=== PATIENT | male | born 1990 | race Caucasian/White ===

== ENCOUNTER → 2017-10-13 | Outpatient (CLI) | payer OTHER ==
--- NOTE | 2017-10-13 12:20 | Diagnostic Imaging Report ---
INDICATION: Bilateral scrotal and groin pain. FINDINGS: Testicular parenchyma bilaterally appears homogeneous, nonfocal, and normal. No evidence for testicular mass. No orchitis or findings of torsion. The epididymides appear normal. There is no hernia. No mass or fluid collection. Normal color Doppler blood flow bilaterally preserved. IMPRESSION: This is a normal scrotal Doppler and ultrasound exam. Dictated by: Dictated on workstation # [id number]
== END ==
LOC: RAD 09:38
PROVIDERS: ATTEND Surgery
DX: N50.812 Left testicular pain (principal); N50.82 Scrotal pain; R10.30 Lower abdominal pain, unspecified
CPT/HCPCS: 76870

== ENCOUNTER → 2018-06-27 | Outpatient (REF) ==
--- NOTE | 2018-06-27 15:47 | Diagnostic Imaging Report ---
INDICATION: Left foot injury. TIME OF EXAM: 03:36 p.m. Three views of the left foot demonstrate transversely oriented radiolucency through the proximal shaft of the fifth metatarsal consistent with a fracture. No displacement or angulation is seen. Remaining metatarsals are intact. Phalanges are intact. Midfoot and hindfoot are unremarkable. IMPRESSION: Nondisplaced proximal fifth metatarsal fracture. Dictated by: Dictated on workstation # [id number]
--- NOTE | 2018-06-27 15:47 | Diagnostic Imaging Report ---
INDICATION: Injury to left foot and ankle. TIME OF EXAM: 03:35 p.m. Three views of the left ankle show normal alignment. Ankle mortise is well maintained. The talar dome is smooth. No fracture or dislocation is seen. There is a fracture through the base of the proximal fifth metatarsal. IMPRESSION: 1. No acute ankle fracture seen. 2. Proximal fifth metatarsal fracture. Dictated by: Dictated on workstation # [id number]
== END | disposition home or self-care (01) ==
LOC: RAD 15:20
PROVIDERS: ATTEND Nurse Practitioner Family
CPT/HCPCS: 73610; 73630

== ENCOUNTER 2020-05-04 09:13 | Emergency (ER) | payer BC, OTHER ==
[~2020-05-04] VITALS: Ht 180 cm; Wt 122.0 kg
[2020-05-04] MEDS ORDERED: KETOROLAC 30 MG/ML VIAL IM ONE (10:15)
[2020-05-04] MEDS ORDERED: ORPHENADRINE 60 MG/2 ML (NORFLEX) AMP (ED ONLY) IM ONE (10:15)
[2020-05-04] MEDS ORDERED: oxyCODONE/APAP 5/325MG (PERCOCET 5) TABLET PO ONE (10:15)
--- NOTE | 2020-05-04 10:20 | ED Back Pain ---
General Chief Complaint: Back Problems Stated Complaint: LOWER BACK PAIN Nursing Triage Note: PT AMBULATORY TO [facility]. WALKING WITH DIFFICULTY AND PAIN. PT STATES HE HAS HAD SOME CHRONIC PAIN IN THE PAST 2-3 YRS AND HAS BEEN GOING TO THE CHIROPRACTOR FOR MONTHY ADJUSTMENTS. HAD SOME PAIN OVER THIS PAST WEEK AND WENT IN FOR AN ADJUSTMENT APPOINTMENT ON MONDAY. BENT OVER TO GET SOMEING OUT OF HIS CAR AFTER HIS APPOINTMENT AND FELT LIKE HE "GOT STUCK" IN THAT POSITION. MADE IT INSIDE AND CALLED [facility]CTOR FOR EMERGENCY ADJUSTMENT AND THEY SAID IT WAS LIKELY MUSCULO/SKELETAL PAIN AND WOULD TAKE TIME. HAS BEEN USING BIOFREEZE WITH NO RELIEF AND FELT THAT HIS PAIN HAS GOTTEN WORSE TO THE POINT AMBULATION HAS MADE HIS GAIT UNSTEADY RISKING A POSSIBLE FALL. Nursing Sepsis Screen: No Definite Risk (SACHI HATCH X MED STUDENT) History of Present Illness Date Seen by Provider: May 04, 2020 Time Seen by Provider: 09:50 Initial Comments This is a 30 y/o M presenting to the Emergency Department with a chief complaint of back pain. It started last weekend and became worse. He went to the chiropractor on for adjustments and felt a little better. On monday, he went to clean his car, picked up trash from the backseat and his lower back locked up for a couple of minutes. On monday, he tried to get out of bed and his back locked again for half an hour before his came to help him. He went for an emergency visit to the chiropractor and had some back spasms. Last night, the pain became worse and he had to sleep in a recliner. He states it's a 4/10 pain in his lower back to his front thighs. Moving his legs makes it worse to a 10/10 pain. He has tried muscle relaxers, heat, and biofreeze which didn't help and hasn't tried taking anything today. He denies numbness in his groin, weakness in his legs, or difficulty with bowel or bladder movement. He denies fever, cough, or headache. He states he's had back pain for 2-3 years and goes to the chiropractor monthly for adjustments. He denies ever having imaging for his lower back. Meds: none Allergy to meds: none FamHx: scoliosis (dad), degenerative disc (sister) PMHx: none PSHx: broken right arm, adenoid removal, broken right foot SocHx: smoked 1 ppd for 14 years, quit 2 months ago. rarely drinks alcohol. no drug use Location: Lumbar Spine (SACHI HATCH STUDENT) Allergies and Home Medications Allergies Coded Allergies: No Known Drug Allergies (Unverified , 09/09/09) Home Medications Cyclobenzaprine HCl 10 Mg Tablet, 10 MG PO Q8H PRN for SPASMS Prescribed by: NAVNEET FITCH on 05/04/20 1108 Oxycodone HCl/Acetaminophen 1 Each Tablet, 1-2 TAB PO Q6H PRN for PAIN- BREAKTHROUGH Prescribed by: NAVNEET FITCH on 05/04/20 1109 Prednisone 20 Mg Tab, 40 MG PO DAILY Prescribed by: NAVNEET FITCH on 05/04/20 1108 Patient Home Medication List Home Medication List Reviewed: Yes (NAVNEET DAVILA MD) Review of Systems Constitutional: no symptoms reported; No fever, No weakness EENTM: no symptoms reported Respiratory: no symptoms reported; No cough Cardiovascular: no symptoms reported; No chest pain Gastrointestinal: no symptoms reported Genitourinary: no symptoms reported; No dysuria, No incontinence Musculoskeletal: back pain (lower) Skin: no symptoms reported Psychiatric/Neurological: No Symptoms Reported; Denies Numbness, Denies Paresthesia (SACHI HATCH STUDENT) Past Awrkpsb-Erykco-Jhujuy Hx Past Med/Social Hx: Reviewed Nursing Past Med/Soc Hx (NAVNEET DAVILA MD) Patient Social History Alcohol Use: Rarely Uses Alcohol Beverage of Choice: Other Smoking Status: Former Smoker Type Used: Cigarettes, Electronic/Vapor Former Smoker, Quit: Mar 02, 2020 Recent Infectious Disease Expo: No (SACHI HATCH STUDENT) Past Medical History Adenoidectomy Adverse Reaction/Blood Tranf: No (SACHI HATCH STUDENT) Family Medical History Diabetes mellitus 19 FATHER 19 MOTHER Other Conditions/Hx (degenerative disc, scoliosis) (SACHI HATCH STUDENT) Physical Exam Vital Signs Vital Signs - First Documented 05/04/20 09:25 Temp 36.4 Pulse 84 Resp 24 B/P (MAP) 142/77 (98) Pulse Ox 100 O2 Delivery Room Air (NAVNEET DAVILA MD) Vital Signs Capillary Refill : Less Than 3 Seconds (SACHI HATCH MED STUDENT) Height, Weight, BMI Height: 6'" Weight: 235lbs. oz. [id number]; 37.00 BMI Method:Stated General Appearance: Mild Distress Cardiovascular: Regular Rate, Rhythm Respiratory: Chest Non Tender, Lungs Clear, Normal Breath Sounds, No Accessory Muscle Use, No Respiratory Distress Back: Vertebral Tenderness Extremity: Normal Range of Motion (pedal/ankle) Neurologic/Psychiatric: Alert, Oriented x3, Normal Mood/Affect Skin: Normal Color, Warm/Dry (SACHI HATCH MED STUDENT) Progress/Results/Core Measures Results/Orders My Orders Orders - NAVNEET DAVILA MD Ketorolac Injection (Toradol Injection) (05/04/20 10:15) Orphenadrine Inj (Ed Only) (Norflex Inje (05/04/20 10:15) Oxycodone/Apap 5/325mg Tablet (Percocet (05/04/20 10:15) (NAVNEET DAVILA MD) Medications Given in ED Current Medications Medications Dose Ordered Sig/Kenny Route Start Time Stop Time Status Last Admin Dose Admin Ketorolac Tromethamine 30 mg ONCE ONCE IM 05/04/20 10:15 05/04/20 10:16 DC 05/04/20 10:28 30 MG Orphenadrine Citrate 60 mg ONCE ONCE IM 05/04/20 10:15 05/04/20 10:16 DC 05/04/20 10:33 60 MG Oxycodone/ Acetaminophen 1 tab ONCE ONCE PO 05/04/20 10:15 05/04/20 10:16 DC 05/04/20 10:27 1 TAB (NAVNEET DAVILA MD) Vital Signs/I&O 05/04/20 05/04/20 09:25 11:23 Temp 36.4 36.1 Pulse 84 62 Resp 24 22 B/P (MAP) 142/77 (98) 105/72 Pulse Ox 100 97 O2 Delivery Room Air Room Air (NAVNEET DAVILA MD) Blood Pressure Mean: 98 Progress Progress Note : Time: 10:15 Progress Note -Toradol, Norflex, and percocet were ordered. (SACHI HATCH MED STUDENT) Progress Note : Progress Note Patient received Toradol, Percocet, and Norflex. This brought his pain down to 0 at rest but he still had significant pain with movement. Prednisone, Percocet, and cyclobenzaprine were prescribed. See discharge instructions with work note. (NAVNEET DAVILA MD) Departure Impression Primary Impression: Low back pain Qualified Codes: M54.5 - Low back pain Disposition: 01 HOME, SELF-CARE Condition: Improved Departure-Patient Inst. Decision time for Depature: 11:05 (NAVNEET DAVILA MD) Referrals: NO,LOCAL PHYSICIAN (PCP/Family) Primary Care Physician Patient Instructions: Low Back Pain in Adults Add. Discharge Instructions: Use ibuprofen up to 600 mg every 6 hours as needed for primary pain control. Add Percocet as prescribed for breakthrough pain. For muscle spasms you may use cyclobenzaprine as prescribed. Use of a back brace may be beneficial. Gentle heat may be used to help relax muscles. Rest your back for couple of days and then gradually increase level of activity as pain allows. Follow-up with your primary care provider soon as possible to discuss further imaging and other therapies such as physical therapy. Drink plenty of clear liquids to stay well-hydrated. While on Percocet it may be beneficial to take a stool softener such as Colace to prevent constipation. Call with questions or concerns. Return to the emergency room if you have worsening symptoms, especially if you develop numbness in your groin, difficulty controlling bowels or bladder, or wea kness in your legs. All discharge instructions reviewed with patient and/or family. Voiced understanding. Scripts Oxycodone HCl/Acetaminophen (Percocet 5-325 mg Tablet) 1 Each Tablet 1-2 TAB PO Q6H PRN for PAIN-BREAKTHROUGH MDD 6 TABS, #10 TAB Prov: NAVNEET DAVILA MD 05/04/20 Prednisone (Prednisone) 20 Mg Tab 40 MG PO DAILY, #6 TAB 0 Refills Prov: NAVNEET DAVILA MD 05/04/20 Cyclobenzaprine HCl (Cyclobenzaprine HCl) 10 Mg Tablet 10 MG PO Q8H PRN for SPASMS, #10 TAB 0 Refills Prov: NAVNEET DAVILA MD 05/04/20 Work/School Note: Work Release Form Date Seen in the Emergency Department: May 04, 2020 Return to Work: May 07, 2020 Restrictions: No Restrictions Other Restrictions Listed Below: Gradually increase level of activity as pain allows. Medical Student Attestation and Attending Note: I have personally interviewed and examined this patient along with Sachi Hatch. I have reviewed student documentation including history, physical, and assessments. I agree with the documentation except where otherwise noted. Patient denied any bowel or bladder dysfunction, saddle paresthesia, or lower extremity weakness. Exam: General: Alert, oriented, mild distress, well developed, obese HEENT: Normocephalic and atraumatic Heart: Regular rate and rhythm without murmur Lungs: Clear to auscultation bilaterally with normal effort Abdomen: Soft, nontender, nondistended, normal bowel sounds Back: Tenderness over the mid lumbar spine Neuropsych: Alert, oriented, no focal deficits Skin: Warm and dry without rashes (NAVNEET DAVILA MD) SACHI HATCH MED STUDENT May 04, 2020 10:20 NAVNEET DAVILA MD May 04, 2020 11:10
[2020-05-04] MEDS ORDERED: PRD20T PO (11:08)
[2020-05-04] MEDS ORDERED: CYCL10TA9 PO (11:08)
[2020-05-04] MEDS ORDERED: OXYC1TAB87 PO (11:08)
[2020-05-04 11:23] VITALS: BP 105/72
== END 2020-05-04 11:32 | disposition home or self-care (01) ==
LOC: EDUNIT# 09:13 → ER 09:15
DX: M54.5 Low back pain (principal); Z87.891 Personal history of nicotine dependence; Z83.3 Family history of diabetes mellitus; Z79.52 Long term (current) use of systemic steroids
CPT/HCPCS: 99284

== ENCOUNTER → 2022-12-30 | Outpatient (CLI) | payer BC ==
[~2022-12-30] MED LIST: CYCL10TA25 PO; OXYC1TAB87 PO; PRD20T PO
--- NOTE | 2022-12-30 14:03 | Diagnostic Imaging Report ---
PROCEDURE: US Scrotum. TECHNIQUE: Multiple real-time grayscale images were obtained over the scrotum in various projections bilaterally. INDICATION: Left testicular pain. EXAMINATION: Scrotal sonogram 12/30/2022 FINDINGS: Grayscale color Doppler ultrasound imaging of the scrotum. Right testicle 4.9 cm in length and left measures 5 cm. Bilateral symmetric blood flow noted. No solid or cystic masses appreciated. Epididymides unremarkable bilaterally. There are no hydroceles. No varicoceles. IMPRESSION: 1. Unremarkable appearance of the testicles. No evidence for torsion. Dictated by: Dictated on workstation # [id number]
== END ==
LOC: RAD 08:33
PROVIDERS: ATTEND Registered Nurse Critical Care Medicine
DX: N50.812 Left testicular pain (principal); N43.2 Other hydrocele; E66.8 Other obesity; A63.0 Anogenital (venereal) warts; M51.36 Other intervertebral disc degeneration, lumbar region; B97.7 Papillomavirus as the cause of diseases classified elsewhere
CPT/HCPCS: 76870